=== PATIENT | female | born 1935 | race Caucasian/White ===

== ENCOUNTER 2021-10-03 10:54 | Inpatient (IN) | payer MEDICARE, OTHER ==
[~2021-10-03] VITALS: Ht 154.9 cm; Wt 70.1 kg
[2021-10-03 12:15] LABS: BASOPHIL 0.1 % (0-2); EOSINOPHIL 1.6 % (0-7); HCT 39.7 % (37.0-47.0); HGB 12.9 g/dl (12.5-16.0); LYMPHOCYTE 7.9 % (15-48); MCH 28.1 pg (25.0-31.0); MCHC 32.5 g/dL (32.0-36.0); MCV 86.5 fL (78.0-100.0); MONOCYTE 6.4 % (0-12); MPV 9.8 fL (6.0-9.5); NEUTROPHIL 83.6 % (41-80); NRBC 0; PLT 308 K/uL (150-400); RBC 4.59 M/uL (4.20-5.40); RDW 14.6 % (11.5-14.0); WBC 14.2 K/uL (4.0-10.5)
[2021-10-03 12:30] LABS: ALBUMIN 3.1 g/dL (3.4-5.0); BILIRUBIN - TOTAL 0.8 mg/dL (0.2-1.0); BUN/CREAT RATIO (CALC) 18.9 RATIO; CREATININE 1.27 mg/dL (0.51-0.95); GLOBULIN (CALCULATION) 4.3 g/dL; POTASSIUM 4.7 mmol/L (3.5-5.1); TOTAL PROTEIN 7.4 g/dL (6.4-8.2)
[2021-10-03 12:40] LABS: LACTIC ACID 1.4 mmol/L (0.4-1.9)
[2021-10-03] MEDS ORDERED: NORVASC2.5 MG PO (18:13)
[2021-10-03] MEDS ORDERED: HUMALOG 75100 UNIT/M SC (18:14)
[2021-10-03] MEDS ORDERED: LEVEMIR DO100 UNITS/ SC (18:15)
[2021-10-03] MEDS ORDERED: PLAVIX75 MG PO (18:16)
[2021-10-03] MEDS ORDERED: COZAAR50 MG PO (18:16)
[2021-10-03] MEDS ORDERED: ALLOPURINOL100 MG PO (18:17)
[2021-10-03] MEDS ORDERED: LIPITOR40 MG PO (18:17)
[2021-10-04 06:12] LABS: BASOPHIL 0.1 % (0-2); EOSINOPHIL 2.9 % (0-7); HCT 33.5 % (37.0-47.0); HGB 10.8 g/dl (12.5-16.0); LYMPHOCYTE 9.6 % (15-48); MCHC 32.2 g/dL (32.0-36.0); MCV 86.8 fL (78.0-100.0); MONOCYTE 7.5 % (0-12); MPV 9.9 fL (6.0-9.5); NEUTROPHIL 79.4 % (41-80); NRBC 0; PLT 271 K/uL (150-400); RBC 3.86 M/uL (4.20-5.40); RDW 14.7 % (11.5-14.0); WBC 10.9 K/uL (4.0-10.5)
[2021-10-04 06:15] LABS: BUN/CREAT RATIO (CALC) 20.5 RATIO; CREATININE 1.27 mg/dL (0.51-0.95); POTASSIUM 4.3 mmol/L (3.5-5.1)
[2021-10-04 11:11] LABS: BILIRUBIN NEGATIVE (NEGATIVE); BLOOD NEGATIVE Ery/uL (NEGATIVE); CLARITY CLEAR (CLEAR); COLOR YELLOW (YELLOW); GLUCOSE (U) TRACE mg/dL (NORMAL); LEUKOCYTES NEGATIVE Leu/uL (NEGATIVE); NITRITE NEGATIVE (NEGATIVE); PROTEIN TRACE (LOW) mg/dL (NEGATIVE); UROBILINOGEN 0.2 mg/dL (0.2-1.0)
[2021-10-04 11:34] LABS: BACTERIA TRACE; URINARY RBC RARE
--- NOTE | 2021-10-05 14:58 | NUR ---
PT MAY REQUIRE O2 UPON DISCHARGE, BUT DR. RAMIREZ WANTED TO WAIT BEFORE ORDERING THE O2. PT. HAS A RW.
[2021-10-07 05:50] LABS: BASOPHIL 0.4 % (0-2); EOSINOPHIL 5.7 % (0-7); HCT 34.4 % (37.0-47.0); HGB 11.3 g/dl (12.5-16.0); LYMPHOCYTE 22.6 % (15-48); MCH 28.3 pg (25.0-31.0); MCHC 32.8 g/dL (32.0-36.0); MONOCYTE 10.4 % (0-12); MPV 9.3 fL (6.0-9.5); NEUTROPHIL 60.4 % (41-80); NRBC 0; PLT 326 K/uL (150-400); RDW 14.6 % (11.5-14.0); WBC 7.7 K/uL (4.0-10.5)
[2021-10-07 06:08] LABS: BUN/CREAT RATIO (CALC) 16.8 RATIO; CREATININE 1.13 mg/dL (0.51-0.95); POTASSIUM 4.3 mmol/L (3.5-5.1)
[2021-10-07] MEDS ORDERED: VENTOLIN HFA IN18 GM INH (13:05)
[2021-10-07] MEDS ORDERED: CEFDINIR300 MG PO (13:05)
== END 2021-10-07 14:45 | disposition home or self-care (01) | DRG 195 ==
LOC: FER 10:54 → FMS 13:50 → FER 15:00 → FMS 10-05 11:31
PROVIDERS: Emergency Medicine; ADMIT Internal Medicine
DX: J18.9 Pneumonia, unspecified organism (principal); I12.9 Hypertensive chronic kidney disease with stage 1 through stage 4 chronic kidney disease, or unspecified chronic kidney disease; E11.22 Type 2 diabetes mellitus with diabetic chronic kidney disease; N18.2 Chronic kidney disease, stage 2 (mild); M10.9 Gout, unspecified; E11.65 Type 2 diabetes mellitus with hyperglycemia; Z20.822 Contact with and (suspected) exposure to COVID-19; F03.90 Unspecified dementia, unspecified severity, without behavioral disturbance, psychotic disturbance, mood disturbance, and anxiety; I25.10 Atherosclerotic heart disease of native coronary artery without angina pectoris; E78.00 Pure hypercholesterolemia, unspecified; Z96.653 Presence of artificial knee joint, bilateral; Z86.73 Personal history of transient ischemic attack (TIA), and cerebral infarction without residual deficits; Z98.890 Other specified postprocedural states; Z88.5 Allergy status to narcotic agent; Z79.4 Long term (current) use of insulin; Z79.02 Long term (current) use of antithrombotics/antiplatelets; Z79.899 Other long term (current) drug therapy; Z95.5 Presence of coronary angioplasty implant and graft
CPT/HCPCS: 36415; 71046; 80048; 80053; 81001; 83036; 83605; 84145; 85025; 87040; 94640; 94667; 94668; G0378; J0456; J0696; J1650; J1815; J7030; J7050; U0002